=== PATIENT | female | born 1995 | race Caucasian/White ===

== ENCOUNTER 2016-08-13 18:42 | Emergency (ER) | payer BC ==
--- NOTE | 2016-08-15 14:12 | ER ---
ADMIT: 08/13/2016 RM/LOC: ER [facility] MR#: [id number] [address] [id number] SIVA THOMAS [address] [place] [address] Emergency Room Report SEX: F AGE: 21 : 1995 DATE: 08/13/2016 SUBJECTIVE: Siva is a 21-year-old female, presents to the emergency room with complaints of a history of pilonidal cyst to her buttocks that gets drained about twice a year. She feels like she currently has one coming on. She reports that her pain is currently a 6/10. She has not taken any Tylenol or ibuprofen. She does report that she has had the fever, chills, and body aches. She has also had a sore throat and nasal drainage. On exam, she was noted to have pharyngeal erythema with 2+ tonsils. Her lung sounds were clear. There was no sign of erythema or induration indicating any pilonidal cyst that needed I and D at the bedside. She was started on cephalexin 500 mg 1 twice daily for 10 days. She was told that if there is any increasing redness, pain, or induration to the gluteal cleft area, she is to contact her primary care provider immediately. She can use Tylenol or ibuprofen as needed for the pain. Rissa Munson APRN/ roderick JOB #: [id number] CC: Herrera Carey MD, Attending Physician
== END 2016-08-13 19:28 | disposition home or self-care (01) ==
LOC: ER 18:42
DX: J02.9 Acute pharyngitis, unspecified (principal); M54.5 Low back pain; Z88.5 Allergy status to narcotic agent; Z88.8 Allergy status to other drugs, medicaments and biological substances